=== PATIENT | male | born 1960 | race Caucasian/White ===

== ENCOUNTER 2017-10-07 14:30 | Inpatient (IN) | payer SELFPAY ==
[2017-10-07] MEDS ORDERED: Morphine 4 MG/ML VIAL ONE (14:47)
[2017-10-07] MEDS ORDERED: Dextrose 50% Abboject 50 ML SYRINGE SLOW IVP PRN (15:57)
[2017-10-07] MEDS ORDERED: Dextrose 5% in Water 1,000 ML IV PRN (15:57)
[2017-10-07] MEDS ORDERED: Ondansetron ODT 4 MG TAB PO PRN (15:57)
[2017-10-07] MEDS ORDERED: Ondansetron HCl/PF 4 MG/2 ML Vial IVP PRN ×2 (15:57→20:33)
[2017-10-07] MEDS ORDERED: PROPOFOL 200 MG/20 ML VIAL ONE (15:59)
[2017-10-07] MEDS ORDERED: Ketorolac Tromethamine 30 MG/ML VIAL ONE (15:59)
[2017-10-07] MEDS ORDERED: Lidocaine 1% PF 5 ML VIAL ONE (15:59)
[2017-10-07] MEDS ORDERED: Dexamethasone 20 MG/5 ML VIAL ONE (15:59)
[2017-10-07] MEDS ORDERED: TETANUS AND DIPHTHERIA TOX/PF 0.5 ML DISP.SYRIN IM SCH (17:00)
[2017-10-07] MEDS ORDERED: Communication Order-Pharmacy FS SCH (17:00)
[2017-10-07] MEDS ORDERED: Midazolam HCl 2 mg/2 ml Vial ONE (18:16)
[2017-10-07] MEDS ORDERED: Fentanyl 100 MCG/2 ML VIAL ONE ×2 (18:17→21:26)
--- NOTE | 2017-10-07 18:41 | HP ---
DATE OF ADMISSION: 10/07/2017 ATTENDING PHYSICIAN: Dr. Demetrio Guevara. TRAUMA ACTIVATION: Not applicable. HISTORY OF PRESENT ILLNESS: This is a 57-year-old male who presented to [facility] as a transfer from [place] [facility] status post jumping from a falling tree stand. Patient states that he jumped somewhere between 7 and 10 feet landing on both feet. He had immediate onset of right lower extremity pain and deformity. He was evaluated in [place] [facility] and found to have an open calcaneal fracture. He was transferred to [facility] for higher level of care. Upon my evaluation, the patient states that pain in right lower extremity is controlled and vocalized no other complaints. Orthopedic Surgery has seen and evaluated the patient. They planned for operative intervention today to his right lower extremity. PAST MEDICAL HISTORY: The patient denies. ALLERGIES: The patient denies. HOME MEDICATIONS: The patient denies. PAST SURGICAL HISTORY: The patient denies. 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 Denies alcohol, tobacco or illicit drug use. FAMILY HISTORY: Patient denies any family history of any chronic medical illnesses. REVIEW OF SYSTEMS: A 10-point review of systems was performed and is negative except as indicated in the HPI. PHYSICAL EXAMINATION: VITAL SIGNS: Heart rate 68, O2 sat 94% on room air, blood pressure 120/94, temperature 98.0. GENERAL: Well-developed, well-nourished male in no acute distress, resting in bed. HEENT: Head is normocephalic. There is a very shallow right parietal abrasion. Eyes: Pupils are PERRL. Extraocular movements are intact. NECK: Supple. Trachea is midline. Range of motion within normal limits for patient. CHEST/PULMONARY: Atraumatic. No tenderness to palpation. Normal work of breathing, symmetric rise. LUNGS: Clear to auscultation bilaterally. CARDIOVASCULAR: Regular rate and rhythm, no obvious murmurs, rubs or gallops. GASTROINTESTINAL: Soft, nontender, nondistended. Appears atraumatic. Bowel sounds are positive. BACK: Reported as being within normal limits. MUSCULOSKELETAL: Bilateral upper extremities within normal limits. Left lower extremity is within normal limits. Right lower extremity: Dressing placed by Orthopedic Surgery is clean, dry, and intact. He is neurovascularly intact distal to the side of his injury. NEUROLOGIC: GCS of 15. No focal deficit noted. LABORATORY FINDINGS: WBC 8.5, hemoglobin 15.0, hematocrit 41.4, platelet count 211. INR 1.0. Sodium 142, potassium 4.1, chloride 109, carbon dioxide 21, BUN 19, creatinine 0.96, glucose 122, AST and ALT within normal limits. Troponin less than 0.010. BNP 19.5. Urinalysis was unremarkable. RADIOGRAPHIC FINDINGS: CT of the C-spine was negative for acute fracture or dislocation. CT of the brain was negative for acute intracranial abnormality. Chest x-ray was read by Radiology without having any acute cardiopulmonary process. X-ray of the left foot without fracture or dislocation. X-ray of the right foot demonstrated calcaneal fracture with subcutaneous emphysema. X-ray of the right ankle demonstrated calcaneal fracture with subcutaneous emphysema. ASSESSMENT: 1. Status post fall approximately 7-10 feet in height. 2. Open calcaneal fracture. 3. Acute traumatic pain. PLAN: Admit to Trauma Services. Discussed case with Orthopedic Surgery who plans on operative intervention later today. The patient has received tetanus and Ancef at outside facility. Perioperative pain control with IV and PO analgesics. Postoperative PT. Plans for admission were discussed with the patient, who vocalized his understanding. All questions were answered at the time of this dictation. Trauma attending has been notified of admission. CHRISTINA
[2017-10-07] MEDS ORDERED: HYDROmorphone 0.5 MG/0.5 ML SYRINGE ONE (19:45)
--- NOTE | 2017-10-07 20:19 | RAD ---
RIGHT HEEL TWO VIEWS: 10/07/17 HISTORY: Calcaneal fracture. FINDINGS/IMPRESSION: Three spot fluoroscopic intraoperative images of the right calcaneus demonstrate placement of two pin s since exam of 11:27 a.m. from the same date. POS: ALEX
[2017-10-07] MEDS ORDERED: metroNIDAZOLE 500 MG/100 ML BAG ONE (20:21)
[2017-10-07] MEDS ORDERED: Promethazine HCl 25 MG/ML VIAL IM PRN (20:33)
[2017-10-07] MEDS ORDERED: Promethazine HCl 25 MG/ML VIAL SLOW IVP PRN (20:33)
[2017-10-07] MEDS ORDERED: Meperidine HCl/PF 25 MG/ML VIAL SLOW IVP PRN (20:33)
[2017-10-07] MEDS ORDERED: Promethazine HCl 25 MG/ML VIAL ONE (20:46)
[2017-10-07] MEDS ORDERED: Meperidine HCl/PF 25 MG/ML VIAL ONE (20:46)
--- NOTE | 2017-10-07 22:40 | HP ---
CHIEF COMPLAINT: Right lower extremity pain. HISTORY OF PRESENT ILLNESS: Mr. 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 The patient fell out having an open wound of his right lower extremity. The patient presented as a transfer for high level of care for treatment of his right lower extremity. The patient is a [place] resident. 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 His pain is severe, is 10/10, but it is better controlled now. Currently, on oral pain meds, resting in his bed, conversing. He was seen and evaluated by Trauma surgeon for admission. PAST MEDICAL HISTORY: None. PAST SURGICAL HISTORY: None. ALLERGIES: No known drug allergies. MEDICATIONS: None. SOCIAL HISTORY: Denies drinking. Denies smoking. Denies illicit drug use. 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 REVIEW OF SYSTEMS: Noncontributory. PHYSICAL EXAMINATION: VITAL SIGNS: He is afebrile. GENERAL: Alert and oriented male in no acute distress, resting comfortably in bed. EXTREMITIES: Right lower extremity: The patient has an open grade III medial laceration that is approximately 10-12 cm in length. The patient has a 2+ dorsalis pedis pulse. He had brisk cap refill to all of his toes. He is able to plantar flex and dorsiflex his toes. He has had difficulty with any eversion , inversion. He has got soft dorsal and volar compartments. He has exposed bone, which is palpable from the medial wound. He has no lateral soft tissue wounds. No obvious ankle defects. LABORATORY DATA: The patient's laboratory values, H&H 14 and 41. INR is 1. Creatinine of 0.8. He has slightly elevated glucose of 1.22. The patient has radiographs of his foot and ankle showing a comminuted right calcaneus fracture in varus with ankle x-rays showing possibly old distal fibular fracture without any displacement of medial posterior malleolus with a comminuted intra- articular calcaneus fracture. Unable to classify without CT findings. IMPRESSION: Open grade III comminuted calcaneus fracture. ASSESSMENT AND PLAN: The patient was taken urgently to the OR for an incision and drainage. The patient will undergo primary closure with a wound VAC application and soft tissue dressing outpatient in the morning by Wound Care. The patient will be placed with a percutaneous pin pulled out to length and positioned as best as possible and pinned, debride any wounds. The patient's wound was not grossly unstable. He had a sock and shoe on when he had his fall and had not any water in wound. The patient will receive Rocephin for 48 hours. He has already received Ancef and Flagyl. The patient will receive his tetanus booster. The patient will be kept in house for 48 hours for care. The plan would be for definitive fixation with likely referral back to [place] where he is from for fixation. I discussed with the patient that given this comminuted calcaneus fracture that he ultimately may require a subtalar fusion. I discussed the possibility of even a potential amputation given the medial soft tissue defect and possible soft tissue graft. I discussed that he would need at least 2 weeks or more of soft tissue rest before any further intervention is performed. I discussed that this is a very difficult injury. I discussed it may take six months to get over. He may never walk effectively again. 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 I discussed that the complications of surgery were damage to nerves, arteries, tendon, vital structures; continued pain; loss of life or limb. The patient agreed and understood. He needed to proceed forward. We will contact Social Work and have them work on the patient. After surgical stabilization, the patient will be transferred for definitive care. I discussed his care with our Trauma staff and they are aware of the patient too. CHRISTINA
[2017-10-07] MEDS: cefTRIAXone\\ROCEPHIN 2 GM in Sodium Chloride 0.9% 100 ML IVPB SCH ×2 (22:42→23:39)
[2017-10-07] MEDS: Acetaminophen 500 MG TAB PO SCH ×3 (22:43→23:38)
[2017-10-07] MEDS: metroNIDAZOLE 500 MG in Premix Bag 1 BAG IVPB SCH (23:13)
[2017-10-07] MEDS: traMADol HCl 50 MG TAB PO SCH ×3 (23:14→23:37)
[2017-10-07] MEDS: Ibuprofen 800 MG TAB PO SCH (23:14)
[2017-10-07] MEDS: Morphine 4 MG/ML VIAL SLOW IVP PRN (23:15)
[2017-10-07] MEDS: Famotidine 20 MG TAB PO SCH (23:34)
[2017-10-07] MEDS: Senokot S 8.6-50 MG TAB PO SCH (23:34)
[2017-10-08] MEDS: Morphine 4 MG/ML VIAL SLOW IVP PRN ×2 (02:20→05:06)
[2017-10-08 02:33] VITALS: BMI 29.5
[2017-10-08 04:37] LABS: #Lymphocytes 0.9 thou/uL (1.20-3.40); #Monocytes 1.1 thou/uL (0.11-0.59); #Neutrophils 10.9 thou/uL (1.40-6.50); %Basophils 0.1 % (0.0-1.0); %Eosinophils 0.1 % (0.0-10.0); %Lymphocytes 6.6 % (21.0-51.0); %Monocytes 8.4 % (0.0-10.0); %Neutrophils 84.8 % (42.0-75.0); Hemoglobin 12.5 g/dL (14.0-18.0); Mean Corpuscular HGB CONC 35.5 g/dL (32.0-36.0); Mean Corpuscular Hemoglobin 33.9 pg (27.0-31.0); Mean Corpuscular Volume 95.4 fl (80.0-94.0); Mean Platelet Volume 7.6 fL (7.4-10.4); Platelet Count 186 thou/uL (130-400); RBC Distribution Width 11.8 % (11.5-14.5); Red Blood Cell (RBC) Count 3.68 mill/uL (4.70-6.10); White Blood Cell (WBC) Count 12.8 thou/uL (4.8-10.8)
[2017-10-08] MEDS: metroNIDAZOLE 500 MG in Premix Bag 1 BAG IVPB SCH ×2 (05:03→13:11)
[2017-10-08] MEDS: traMADol HCl 50 MG TAB PO SCH (05:04)
[2017-10-08] MEDS: Acetaminophen 500 MG TAB PO SCH (05:04)
[2017-10-08] MEDS: Ibuprofen 800 MG TAB PO SCH ×2 (05:05→14:02)
[2017-10-08 05:06] LABS: Anion Gap 10 mmol/L (10-20); BUN (Urea Nitrogen) 16 mg/dL (8.4-25.7); Calc. Creatinine Clearance 124 mL/min (70-130); Carbon Dioxide 22 mmol/L (22-29); Chloride 109 mmol/L (98-107); Estimated GFR-MDRD 84; Glucose 177 mg/dL (70-105); Magnesium 1.8 mg/dL (1.6-2.6); Phosphorus 2.5 mg/dL (2.3-4.7); Potassium 4.3 mmol/L (3.5-5.1); Sodium 137 mmol/L (136-145)
--- NOTE | 2017-10-08 05:14 | OP ---
DATE OF PROCEDURE: 10/07/2017 PREOPERATIVE DIAGNOSIS: Right open calcaneus fracture. POSTOPERATIVE DIAGNOSES: 1. Right open calcaneus fracture. 2. An 11 cm oblique axial medial laceration with a 2 cm longitudinal laceration. 3. Posterior tibial artery injury. 4. Adductor hallucis muscle laceration. 5. Flexor retinaculum laceration. PROCEDURES PERFORMED: 1. Irrigation and debridement of an open calcaneus fracture. 2. Percutaneous pinning of the calcaneus fracture. 3. Closure of a 13 cm laceration 4. Placement of a bulky Black splint, shorty leg STAFF: Constantine Patel M.D. ANESTHESIOLOGIST: Ricardo Flores M.D. INSURANCE VERIFIER: Oleksandr De Leon PA-C ANESTHESIA: The patient received an LMA. ESTIMATED BLOOD LOSS: 200 mL. TOURNIQUET TIME: 31 minutes. ANTIBIOTICS: The patient received 2 grams of Rocephin preoperatively. On this admission, the patient had Flagyl 500 and Ancef and Flagyl in the ER. Before transfer, the patient had implant of two 3 x 32 K-wires. COMPLICATIONS: None. 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 The patient stated he was in boots as well as had socks, did not fall into water, he came in without a boot or shoe or socks. The patient had no previous history of injury, no previous pain. I discussed with the patient that he had x-rays of the foot and ankle showing a complex comminuted fracture of the calcaneus that was open, but there was exposed bone on evaluation of the skin. There was a large laceration about 10-12 cm on initial examination, that was oblique and looked distal right near the neurovascular bundle on the medial aspect of the ankle. I discussed with the patient the risks and benefits of an irrigation and debridement of the patient's open calcaneus fracture with percutaneous pinning for subsequent stabilization, exploration of the wound, and possible wound VAC and posterior splint. I have discussed with the patient the risks and benefits of the surgery to include pain, scar, bleeding, infection , damage to vital structures, decreased range of motion or strength, continued pain despite surgical intervention. I have discussed with the patient that given the fracture position that he had a very high likelihood of needing a hip fracture comminution, but there is a very likely possibility that the patient could require subtalar fusion. He may require further intervention upon his calcaneus. The patient also potentially could undergo an amputation, potential wound healing problems because of the open wound. The patient understood the risks and benefits of the surgery, and also understood the loss of life or limb and elected to proceed. PROCEDURE IN DETAIL: Timeout was performed designating the patient's right lower extremity as the operative site. After a timeout was performed, the patient's wound was first washed out for about 10 minutes and copiously irrigated. We better examined the wound once he was asleep and saw the neurovascular bundle as well as a portion of the patient's flexor retinaculum. When we palpated, it appeared that the posterior tibial tendon as well as the flexor tendon digitorum longus were within their tendon sheath and intact. We were able to see what looked to be distally were the flexor hallucis longus, when it moved, we could see it running down below the sustentaculum lisa. The artery was pulsatile within the wound. We can follow the artery, but we had difficulty tracking it distally either of its branches. It was difficult to Doppler although we had a nicely palpable posterior tibialis tendon. We felt that it had been damaged either partially transected although we did not completely dissected out to where the laceration was, but there was a branch that was either recurrent branch of the calcaneus or one of the other branches, it was diving deep, it was not coagulated, it was actively bleeding. We felt like we saw the tibial nerve release one of the branches, diving deep for the lateral branch, but did not find medial branch. The patient had an open fracture with debris and a piece of his medial aspect of his calcaneus tuberosity that had lacerated through the soft tissues as well as abductor hallucis as he was sitting and he was was shortened. The heel was in slight varus and the wound was sitting out, so we moved to open that piece to basically devascularize and not attached, also the bone and some small fibrous material, which could have either been a stick that impacted through a second laceration versus the patient's sock that got entangled. We first started in the superficial wound, debrided anything that looked nonviable. We then moved with deep retractors and looked both deep in the sinus tarsi looking kind of at the calcaneus, all the way across the calcaneus, right inside at the body of the calcaneus. We could see the bottom of the sustentaculum lisa and had ripped off his abductor hallucis muscle, exposed most of the medial wall of the tuberosity. We washed it copiously. We felt like we had done an adequate debridement and felt like we controlled most of the bleeders. We had taken the tourniquet up during our debridement saying that we thought was the potential pulsatile vessel and some bleeding following up the procedure and left it up for 33 minutes. We had washed it copiously. We then placed 2 pins obliquely through the tuberosity, reduced, and lengthened the wound and put him a little more valgus. We put the pins across one more inferiorly right into the joint, right below the joint, it is hard to tell, to the distal extent of the calcaneus. We put the second one into the talus. We felt like we improved the overall alignment of the calcaneus, moved it back to a more anatomic position and more anatomic length. We had difficulty with our positioning and a kind of sloppy position, so the medial wound was better exposed. We were getting a perfect heel view to look at our pins, but liked the overall alignment and position of the pin within the calcaneus as a temporizing fixation. We then completed and washed out for a total of 5 liters and let the tourniquet down. We then saw what looked like either the end of the tibial artery, which we did not further dissect out or one of the branches, seemed like the patient's tibial nerve was intact, as well as the rest of his tendons. We controlled one small vessel that was bleeding deep lateral within the wound. We washed the wound copiously with water and placed some Gelfoam to allow for anything and then we removed it. After we felt we had adequately decompressed, we did not take any of the remaining bone. There is not any bone that was devascularized and felt it would be good to be placed back in the wound, so it was left out. We then closed the skin with 2-0 and 3-0 nylon and trauma stitches and horizontal mattress sutures. We cut our pins and bent them. We placed the patient in bulky Black cotton dressing, which will stay in with soft tissue elevation and 48 hours of antibiotics. The patient will be kept inhouse. We will keep him here until his 48 hours of antibiotics were up, and we will likely get a look at the medial wound and potentially consider a wound VAC in the 24 hours versus 36 hours from now. We will discuss with the patient's disposition. I feel the patient would best benefit as I had discussion before surgery as a temporizing measure here for planned definitive fixation likely in [place], this would just be a stabilization to get the patient either get to go by personal vehicle or flight or to transfer medically back to [place] for care. The patient understands. I have discussed with the patient twice the severity of the wound and the severity of the issue. He understands this. We will follow him inhouse, admit to Trauma Service with 48 hours of Flagyl and Rocephin. CHRISTINA
[2017-10-08] MEDS ORDERED: HYDROcodone/Acetaminophen 10/325 mg Tablet PO PRN (06:31)
[2017-10-08] MEDS ORDERED: Enoxaparin Sodium 40 MG/0.4 ML SYRINGE SC SCH (09:00)
[2017-10-08] MEDS: Senokot S 8.6-50 MG TAB PO SCH (09:58)
[2017-10-08] MEDS: Famotidine 20 MG TAB PO SCH (09:58)
--- NOTE | 2017-10-08 11:14 | PRG ---
DATE OF SERVICE: 10/08/2017 SUBJECTIVE: This is a 57-year-old male status post fall/jumped from a tree stand approximately 7-10 feet with an open calcaneal fracture. He is postop day #1 status post irrigation and debridement wit h percutaneous pinning of his injury. Overnight, the patient continued to have significant pain on U ltram and requiring IV morphine on multiple occasions. He was switched to [place] earlier this a.m. an d states that pain is more controlled now. Upon my evaluation, he vocalizes no other complaint. OBJECTIVE: VITAL SIGNS: Temperature 98.2, pulse 66, respirations 16, O2 sat 95% on room air, blood pressure 102 /62. GENERAL: Well-developed male in no acute distress, resting in bed. PULMONARY: Normal work of breathing. Symmetric rise. CARDIOVASCULAR: Regular rate and rhythm. ABDOMEN: Soft, nontender, nondistended. MUSCULOSKELETAL: Moves all extremities x4. Right lower extremity dressing is clean, dry, and intact . He is neurovascularly intact to distal side of his injury. LABORATORY DATA: WBC 12.8, hemoglobin 12.5, hematocrit 35.1, platelet count 186. Sodium 137, potass ium 4.3, chloride 109, carbon dioxide 22, BUN 16, creatinine 0.93, glucose 177. Phosphorus 2.5, magn esium 1.8. IMAGING: No new radiographic findings to review. ASSESSMENT: 1. Status post fall from 7-10 feet. 2. Open calcaneal fracture status post irrigation and debridement with percutaneous pinning. 3. Acute traumatic pain. PLAN: Continue pain management as ordered and revaluate later this afternoon. PT for mobility and c rutch training. Per Orthopedic Surgery, the patient needs at least 48 hours of IV antibiotics. Sinc e the patient is not from this area, Orthopedic Surgery is attempting to arrange consultation with or thopedic surgeon in the [place] area, so that the patient can follow up with for definitive treatment of this injury. Patient instructed on the importance of incentive spirometry, mobility and pulmonar y toileting. He has been started on deep venous thrombosis prophylaxis per Orthopedic Surgery. Hannah ent discussed with trauma attending.
[2017-10-08] MEDS ORDERED: HYDROcodone/Acetaminophen 10/325 mg Tablet PO SCH (12:00)
[2017-10-08 16:12] VITALS: BP 112/57; TEMP 97.6
[2017-10-08] MEDS ORDERED: cefTRIAXone\\ROCEPHIN 2 GM in Sodium Chloride 0.9% 100 ML IVPB SCH (18:30)
--- NOTE | 2017-10-08 18:47 | DIS ---
DISCHARGE DIAGNOSIS: Fall from tree with open calcaneus fracture. PROCEDURES DURING ADMISSION: Irrigation and debridement of open calcaneus fracture and percutaneous pinning of the calcaneus fracture and closure of the laceration. HOSPITAL COURSE: The patient was admitted. He had no other injuries noted on physical examination. He currently denies any other complaints. No loss of consciousness. No numbness or tingling. No d yspnea, no abdominal pain. PHYSICAL EXAMINATION: VITAL SIGNS: His temperature is 98, pulse 66, blood pressure 102/62. GENERAL: He is awake and alert, GCS is 15. HEENT: Unremarkable. NECK: Supple, no thyroid masses, no carotid bruits. LUNGS: Clear. CARDIAC: Regular rate and rhythm. ABDOMEN: Soft, nondistended, nontender, good bowel sounds. EXTREMITIES: He has a splint on his right foot and ankle. No other evidence of injury. Discussion with Dr. Patel. The patient is from [place], has access to a ride back there this after noon. He has had 48 hours of IV antibiotics. He feels that is sufficient and should be able to be d ischarged on oral antibiotics after an IM Rocephin shot. He would like to continue oral Flagyl and f jon up with the orthopedist in [place] for further care.
--- NOTE | 2017-10-09 11:13 | CON ---
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 The patient is postop day #1, resting in bed comfortably. The patient states th at his ride is here and he must get it to go back home. The patient received 24 hours at this point Rocephin, is on Flagyl, received his tetanus booster per report and is currently resting in bed. The patient states his pain is controlled with p.o. pain meds. PHYSICAL EXAMINATION: The patient is afebrile, resting comfortably in bed. He is alert and oriented . The patient's right extremity has got a bulky Black cotton dressing in place. The patient is able to wiggle his toes. He does state he has some decreased sensation in the plantar surface, but he do es say to light touch, he can feel his plantar pad of all of his toes near his metatarsal head as wel l as his dorsal toe. He is able to flex and extend his great toe as well as flex and extend his seco nd through fifth toes. He has got good cap refill. IMPRESSION: 1. Grade III open calcaneus fracture 11 cm laceration. 2. Intact flexor hallucis longus, flexor digitorum longus and posterior tibialis. The patient had a pulsatile posterior tib, but could not Doppler the artery through its entire course. ASSESSMENT AND PLAN: The patient has some gross particulates with no large particles within the woun d. The patient's wound was copiously irrigated. He was pinned last night and the wound was closed. He is currently resting in a soft tissue dressing. I feel the patient would best be suited to be tr eated for definitive care of his calcaneus fracture near his home in [place] and contacted jayro Reed owed by [facility] and was able to speak with Dr. Lane wheelchair van operator first responder, they gave me the clinic nu mber as [phone] Abbe Caraballo, who is a foot and ankle specialist. I discussed her with t he situation for the patient that he would be traveling by private vehicle. We would give him last d ose of Rocephin and send with p.o. Flagyl and p.o. pain medication as well as aspirin, home nonweight bearing on his right lower extremity until he follows up at [facility] either an outpatient clinic or the ER for continued care there. I discussed with the patient that this is a serious injury again that he needs followup. I discussed with him the surgery which he declined. He did not want to fur ther hear about what was transpired and understands this is a significant injury and needs further fo llowup. He will be discharged by the Trauma Service.
== END 2017-10-08 16:13 | disposition home or self-care (01) | DRG 465 ==
LOC: ERS 14:30 → SURG B 16:50 → SDC 16:50 → SURG B 21:45
PROVIDERS: ADMIT Surgery; ATTEND Surgery
PROC: 0QH Lower Bones, Insertion (ICD-10-PCS; principal; 2017-10-07)
PROC: 0JBQ0ZZ Excision of Right Foot Subcutaneous Tissue and Fascia, Open Approach (ICD-10-PCS; 2017-10-07)
PROC: 2W3LX1Z Immobilization of Right Lower Extremity using Splint (ICD-10-PCS; 2017-10-07)
DX: S92.001B Unspecified fracture of right calcaneus, initial encounter for open fracture (principal); W17.89XA Other fall from one level to another, initial encounter
CPT/HCPCS: 28400; 36415; 76000; 80048; 83735; 84100; 85025; 96374; G0390; G8978-GP-CK; G8979-GP-CI; J0696; J1100; J1170; J1650; J1885; J2001; J2175; J2250; J2270; J2550; J2704; J3010; J7050